=== PATIENT | female | born 1985 | race Caucasian/White ===

== ENCOUNTER → 2020-05-29 10:06 | Outpatient (BNVA) | payer OTHER, SELFPAY | PROVIDERS: PCP Student in an Organized Health Care Education/Training Program; Visit Provider Surgery | DX: K42.9 Umbilical hernia without obstruction or gangrene (principal) | CPT/HCPCS: 99212 ==

== ENCOUNTER 2020-06-07 13:38 | Outpatient (REF) | payer OTHER, SELFPAY ==
--- NOTE | 2020-06-07 13:51 | XR_ITS ---
EXAMINATION: XR KNEE, BILATERAL XR KNEE, RIGHT XR KNEE, LEFT CLINICAL INFORMATION: Pain. COMPARISON: None TECHNIQUE: AP bilateral knees 1 view. Right knee 2 views. Left knee 3 views. FINDINGS: RIGHT KNEE: Normal alignment. Joint spaces are maintained. No fracture or dislocation. No effusion. LEFT KNEE: Normal alignment. Joint spaces are maintained. No fracture or dislocation. No effusion. XR/XR knee RT 2V IMPRESSION: No evidence of significant osseous abnormality.
--- NOTE | 2020-06-07 13:51 | XR_ITS ---
EXAMINATION: XR KNEE, BILATERAL XR KNEE, RIGHT XR KNEE, LEFT CLINICAL INFORMATION: Pain. COMPARISON: None TECHNIQUE: AP bilateral knees 1 view. Right knee 2 views. Left knee 3 views. FINDINGS: RIGHT KNEE: Normal alignment. Joint spaces are maintained. No fracture or dislocation. No effusion. LEFT KNEE: Normal alignment. Joint spaces are maintained. No fracture or dislocation. No effusion. XR/XR knee LT 2V IMPRESSION: No evidence of significant osseous abnormality.
--- NOTE | 2020-06-07 13:51 | XR_ITS ---
EXAMINATION: XR KNEE, BILATERAL XR KNEE, RIGHT XR KNEE, LEFT CLINICAL INFORMATION: Pain. COMPARISON: None TECHNIQUE: AP bilateral knees 1 view. Right knee 2 views. Left knee 3 views. FINDINGS: RIGHT KNEE: Normal alignment. Joint spaces are maintained. No fracture or dislocation. No effusion. LEFT KNEE: Normal alignment. Joint spaces are maintained. No fracture or dislocation. No effusion. XR/XR knee standing BI IMPRESSION: No evidence of significant osseous abnormality.
== END 2020-06-07 13:39 | disposition home or self-care (01) ==
LOC: HO.HOSX 13:38
PROVIDERS: PCP Student in an Organized Health Care Education/Training Program; Referring Provider Student in an Organized Health Care Education/Training Program; Visit Provider Orthopaedic Surgery
DX: M25.562 Pain in left knee (principal); M25.561 Pain in right knee; M22.2X1 Patellofemoral disorders, right knee; M22.2X2 Patellofemoral disorders, left knee
CPT/HCPCS: 73560; 73565; 99202

== ENCOUNTER 2020-06-13 08:13 | Day surgery (SDC) | payer OTHER, SELFPAY ==
[2020-06-07 14:23] VITALS: BMI 28.1
[2020-06-13] VITALS (13 sets, daily range): BP systolic 100–122; BP diastolic 61–81; PULSE 62–76; RESP 16–20; TEMP 36.2–36.7; O2SAT 92–99
--- NOTE | 2020-06-13 08:37 | P.CONAN_ITS ---
[facility] Past Medical History Medical History Atypical chest pain Family history of anesthesia complication Hx of scoliosis Smoker Umbilical hernia Family History Family History Other History of bone cancer Surgical History Surgical History No history of previous surgery Social History Social History Smoking Status: Current some day smoker Packs Per Day: 0 (occasional use of Huka) Cigarettes Per Day: 0.0 Years Smoked: occasional Huka use Use of substances other than those prescribed or required for medical reasons: No Advance Directives Information Provided: No Recently lost weight without trying: No Current occupational status: employed Current occupation: realtor - Right [employer] Meds Allergies Allergy/AdvReac Type Severity Reaction Status Date / Time No Known Allergies Allergy Verified 06/07/20 14:27 Home Medications Medication Instructions Recorded Confirmed Type No Known Home Meds 06/07/20 06/07/20 History Exam Exam Date and Time: June 13, 2020 0837 Height,Weight and Vital Signs: Height 5 ft 3 in Weight 72.121 kg Airway Mallampati Class: II TM Dist: >3cm Neck ROM: Full Assessment and Plan Assessment Anesthesia Assessment: Anesthesia Plan Discussed and Chart Reviewed Final Anesthetic Review NPO: Yes ASA Class: II Final Preanesthetic Review: No Changes in Pt Med Stat, Meds/Allgs Chart Reviewed, Consent Obtained/Reviewed and Anes Risks/Benef Reviewed Patient Risk: Low Procedure Risk: Low Assessment/Block/Sedation in SS: Assess/Block/Sedation-SS Anesthetic Plan Anesthetic Plan: GA Disposition: Standard PACU
--- NOTE | 2020-06-13 09:08 | MHC.SHP ---
Pre-Procedural Eval Section B Chief Complaint: Umbilical Hernia Allergies: Allergies Allergy/AdvReac Type Severity Reaction Status Date / Time No Known Allergies Allergy Verified 06/07/20 14:27 Plan Patient has been examined and remains a candidate for the planned procedure
[2020-06-13 09:17] LABS: UPreg QC Valid YES; Urine Pregnancy NEGATIVE (NEGATIVE)
--- NOTE | 2020-06-13 10:01 | PM.OP ---
Brief Operative Note Date of Service: 06/13/20 Pre-op diagnosis: umbilical hernia Post-op diagnosis: same Procedure: repair of umbilical hernia wiht mesh Implants: mesh Surgeon: Art Gonzalez MD Anesthesia: GLMA Estimated blood loss (mL): 0 Pathology: none sent Condition: stable Disposition: PACU
[2020-06-13] MEDS: Acetaminophen 325 MG TABLET 650 MG PO (10:29)
[2020-06-13] MEDS: ondansetron HCL 4 MG/2 ML VIAL IVPUSH (10:35)
[2020-06-13] MEDS: oxyCODONE HCl Immed Release 5 MG TABLET PO (10:36)
[2020-06-13] MEDS: fentaNYL citrate/PF 100 MCG/2 ML VIAL 50 MCG IVPUSH (10:38)
--- NOTE | 2020-06-13 11:16 | OP_ITS ---
SURGEON: Art Gonzalez MD INDICATIONS: The patient is a 34-year-old female with a reducible mass in the umbilicus consistent with umbilical hernia. In view of tenderness, she wanted to proceed with repair. The patient understood the technique of repair with mesh. She was aware of the risks, benefits, and alternatives. PREOPERATIVE DIAGNOSIS: Umbilical hernia. POSTOPERATIVE DIAGNOSIS: Umbilical hernia. PROCEDURE PERFORMED: Repair of umbilical hernia with Ventralex mesh. ESTIMATED BLOOD LOSS: Blood loss about 5 cc. The patient was extubated without difficulty and transferred to recovery room with stable vital signs. COMPLICATIONS: There were no complications noted. Initial and final counts of sponges and instruments were correct. ANESTHESIA: ASSISTANTS: SPECIMENS: WOOD ENGRAVER: Ramila Mars PA-C. DESCRIPTION OF PROCEDURE: The patient was brought to the operating room, placed supine on the table under general anesthesia via laryngeal mask airway. The periumbilical area was prepped and draped in usual sterile fashion. A surgical time-out was done. The patient received cefazolin 2 g IV preoperatively. A short transverse supraumbilical incision was made in the skin using blade #15, it was carried down to full-thickness subcutaneous fat. We then proceeded to apply Allis clamps on the subcutaneous layer, subdermal layer of the umbilicus and used this retraction to create to obtain a dissection underneath the umbilicus and lifted this as a flap off the rest of the fascia. This allowed us to visualize the umbilical defect which was about 1.5 cm. The edges of the fascial defect were carefully defined. We were able to actually stay above the peritoneal plane and proceeded to do blunt dissection to create space for the mesh underneath the fascia. We used the small size Ventralex mesh, and this was flattened under the fascial defect. The Prolene straps of this mesh were secured with Prolene 2-0 sutures to the fascial edge on both sides. The Prolene straps were trimmed. We then closed the fascial defect with the Maxon 1 [id number] stitch. We irrigated. We proceeded to apply Dexon 3-0 sutures to tack the umbilicus to the fascia to recreate the dimple. The subcutaneous layer was reapposed with Dexon 3-0 interrupted sutures. Skin closure achieved with Dexon 4-0 subcuticular running stitch. The area of the incision was then infiltrated with Marcaine 0.5% for postop analgesia and the procedure was completed. The patient tolerated the procedure well. MD JANUSZ Mayer/ДМИТРИЙ / [id number]
[2020-06-13] MEDS: Ketorolac Tromethamine 15 MG/ML VIAL IVPUSH (11:30)
== END 2020-06-13 12:53 | disposition home or self-care (01) ==
PROVIDERS: PCP Student in an Organized Health Care Education/Training Program; Visit Provider Surgery
PROC: (CPT 49585; principal; 2020-06-13 09:50)
DX: K42.9 Umbilical hernia without obstruction or gangrene (principal); F17.200 Nicotine dependence, unspecified, uncomplicated; Z80.8 Family history of malignant neoplasm of other organs or systems
CPT/HCPCS: 49585; 81025; C1781; J0690; J1100; J1885; J2250; J2405; J3010

== ENCOUNTER → 2020-06-26 14:49 | Outpatient (BNVA) | payer OTHER, SELFPAY | PROVIDERS: PCP Student in an Organized Health Care Education/Training Program; Referring Provider Student in an Organized Health Care Education/Training Program; Visit Provider Surgery | DX: K42.9 Umbilical hernia without obstruction or gangrene (principal) | CPT/HCPCS: 99212 ==

== ENCOUNTER 2021-01-11 09:39 | Outpatient (REF) | payer OTHER, SELFPAY ==
--- NOTE | ~2021-01-11 | US_ITS ---
EXAMINATION: US ABDOMEN COMPLETE CLINICAL INFORMATION: Epigastric pain. COMPARISON: None TECHNIQUE: Real-time imaging of the abdominal viscera. FINDINGS: PANCREAS: Normal. ABDOMINAL AORTA: The proximal, mid, and distal segments are normal in caliber. INFERIOR VENA CAVA: Visualized portions are normal. LIVER: The liver is normal in size. The liver contour is normal. Liver echotexture is increased. No focal hepatic lesion. There is no intrahepatic biliary duct dilatation seen. GALLBLADDER: Normal. The gallbladder is physiologically distended without evidence of stones, sludge, polyps, wall thickening or pericholecystic fluid. COMMON BILE DUCT: Normal in caliber measuring 0.2 cm in diameter. RIGHT KIDNEY: Normal. No hydronephrosis. No renal calculi or focal parenchymal lesions. The kidney measures 9.5 cm in maximum dimension. LEFT KIDNEY: Normal. No hydronephrosis. No renal calculi or focal parenchymal lesions. The kidney measures 11.0 cm in maximum dimension. SPLEEN: The spleen is slightly enlarged. The spleen measures 13.3 cm in maximum dimension. FREE FLUID: None. US/US abdomen complete IMPRESSION: Echogenic liver probably representing fatty infiltration. Mild splenomegaly.
--- NOTE | ~2021-01-11 | US_ITS ---
EXAMINATION: PELVIC ULTRASOUND CLINICAL INFORMATION: Pain COMPARISON: Previous exam most recent December 2017 TECHNIQUE: Transabdominal and transvaginal pelvic ultrasound was performed. Transvaginal exam was performed for better visualization of the uterus and ovaries. FINDINGS: The uterus is anteverted and measures 8.3 x 4.5 x 5.4 cm in dimension. No focal uterine lesion is seen. Endometrial thickness is normal measuring 0.9 cm. There are nabothian cysts in the cervix. The right ovary is slightly enlarged enlarged measuring 3.4 x 2.4 x 3.3 cm, volume 14 mL. There are multiple peripheral small cysts or follicles in the right ovary. There is a larger 1.3 x 1 x 1.5 cm simple cyst or follicle. The left ovary is normal in size and measures 3.5 x 1.9 x 2.7 cm, volume 9 mL. There are multiple small peripheral cysts or follicles. There is no fluid in the pelvis. US/US pelvic and transvaginal IMPRESSION: Polycystic appearance of the ovaries. Otherwise unremarkable exam.
== END 2021-01-11 09:40 | disposition home or self-care (01) ==
LOC: HO.US 09:39
PROVIDERS: PCP Student in an Organized Health Care Education/Training Program; Visit Provider Emergency Medicine
DX: R10.2 Pelvic and perineal pain (principal)
CPT/HCPCS: 76700; 76830; 76856

== ENCOUNTER 2021-05-10 13:12 | Outpatient (REF) | payer OTHER, SELFPAY | END 2021-05-10 13:13 | disposition home or self-care (01) | LOC: CF 13:12 | PROVIDERS: PCP Student in an Organized Health Care Education/Training Program; Visit Provider Physician Assistant | DX: R12 Heartburn (principal); K76.0 Fatty (change of) liver, not elsewhere classified; F41.9 Anxiety disorder, unspecified | CPT/HCPCS: 99202 ==

== ENCOUNTER 2021-05-11 09:08 | Outpatient (REF) | payer OTHER, SELFPAY ==
[2021-05-11 09:29] LABS: MANUAL DIFF FLAG NO
[2021-05-11 09:46] LABS: Basophils Percent Auto 0.6 % (0-2); Eosinophils Absolute Auto 0.1 X10*3/uL (0.0-0.4); Eosinophils Percent Auto 1.6 % (0-4); Hematocrit 41.4 % (37-47); Hemoglobin 13.5 g/dl (12.0-16.0); Imm Gran Abs Auto 0.01 X10*3/uL (0.00-0.03); Imm Gran Pct Auto 0.2 % (0.0-0.4); Lymphocytes Absolute Auto 1.5 X10*3/uL (1.2-4.9); Lymphocytes Percent Auto 30.1 % (20-40); Mean Corpuscular HGB Conc 32.6 g/dl (31.0-35.0); Mean Corpuscular Hemoglobin 26.9 pg (27.0-33.0); Mean Corpuscular Volume 82.6 fL (80-98); Mean Platelet Volume 11.5 fL (9.4-12.3); Monocytes Absolute Auto 0.3 X10*3/uL (0.1-1.2); Monocytes Percent Auto 5.9 % (2-11); Neutrophils Percent Auto 61.6 % (45-73); Platelet Count 214 X10*3/uL (160-400); Red Blood Count 5.01 X10*6/uL (4.20-5.50); Red Cell Distribution Width 13.1 % (11.0-16.0); White Blood Count 4.9 X10*3/uL (4.8-10.8)
[2021-05-11 10:17] LABS: Alanine Aminotransferase 22 U/L (0-31); Albumin Level 4.4 g/dL (3.5-5.0); Alkaline Phosphatase 54 U/L (39-117); Anion Gap 10 (12-20); Aspartate Amino Transferase 18 U/L (5-31); Bilirubin Total 0.7 mg/dL (0.0-1.0); Blood Urea Nitrogen 11 mg/dL (9-16); Calcium 9.9 mg/dL (8.4-10.2); Carbon Dioxide 28 mmol/L (22-29); Chloride 104 mmol/L (96-108); Cholesterol 254 mg/dL; Estimated Glomerular Filt Rate > 60; Glucose Random 89 mg/dL (60-115); HDL Cholesterol 41 mg/dL; LDL Cholesterol Calculated 142 mg/dl; Potassium 4.2 mmol/L (3.3-5.1); Sodium 138 mmol/L (135-145); Total Protein 7.3 g/dL (6.5-8.0); Triglycerides 356 mg/dL
[2021-05-11 10:25] LABS: Estimated Average Glucose 80 mg/dL; Hemoglobin A1c % 4.4 %
[2021-05-11 10:36] LABS: HBS Num1 438.24 mIU/mL (0-7.99); HBsAGNum1 0.14 S/CO (0.00-0.99); Hepatitis B Surface Antigen Negative (Negative); ~HepC Num1 0.11 S/CO (0.00-0.79); ~Hepatitis B Surface Antibody REACTIVE (Nonreactive); ~Hepatitis C Antibody Nonreactive (Nonreactive)
[2021-05-11 10:45] LABS: Ferritin 25 ng/mL (10-122); Thyroid Stimulating Hormone 1.24 uIU/mL (0.32-4.0)
[2021-05-11 11:01] LABS: HBc Num1 0.03 S/CO (0.00-0.79); Hepatitis A Antibody IgM 0.31 Index (0-0.79); Hepatitis B Core Antibody Nonreactive (Nonreactive); ~Hepatitis A Antibody IgM Nonreactive (Nonreactive)
== END 2021-05-11 09:09 | disposition home or self-care (01) ==
LOC: HO.LAB 09:08
PROVIDERS: PCP Student in an Organized Health Care Education/Training Program; Referring Provider Student in an Organized Health Care Education/Training Program; Visit Provider Physician Assistant
DX: R12 Heartburn (principal); K76.0 Fatty (change of) liver, not elsewhere classified; K59.09 Other constipation; R79.89 Other specified abnormal findings of blood chemistry; D64.9 Anemia, unspecified
CPT/HCPCS: 36415; 80053; 80061; 82728; 83036; 84443; 85025; 86704; 86706; 86709; 86803; 87340

== ENCOUNTER 2021-09-24 12:52 | Outpatient (REF) | payer OTHER, SELFPAY ==
--- NOTE | ~2021-09-24 | US_ITS ---
EXAMINATION: US PELVIC AND TRANSVAGINAL CLINICAL INFORMATION: Infertility, obesity. COMPARISON: None TECHNIQUE: Ultrasound of the pelvis is performed using both transabdominal and transvaginal transducers along with Doppler. Transvaginal imaging is performed due to inadequate visualization transabdominally. FINDINGS: UTERUS: The uterus is anteverted and measures 10.7 cm in length, 4.5 cm in AP and 5.5 cm in transverse dimension. The double wall endometrial thickness is 13 mm. The uterus is smooth in contour and has normal myometrial echogenicity. No visible fibroid. There are small nabothian cysts seen in the cervix. ADNEXA: Both ovaries are visualized. There is normal color flow to the adnexa. There is no ovarian torsion. There is no pelvic ascites or fluid collection. Right ovary measures 5.0 x 3.6 x 3.6 cm and volume 26.4 mL. There are small follicular cysts seen. Previously, right ovary measured 3.4 x 2.4 x 3.3 cm and volume 14.1 mL. Left ovary measures 3.7 x 2.2 x 2.6 cm and volume 11.1 mL. There are multiple small follicles visualized. Previously, left ovary measured 3.5 x 1.9 x 2.7 cm and volume 9.0 mL. There is no free fluid in the cul-de-sac. US/US pelvic and transvaginal IMPRESSION: 1. Unremarkable uterus. 2. Mild small nabothian cysts. 3. Small follicles in the ovaries.
== END 2021-09-24 12:53 | disposition home or self-care (01) ==
LOC: HO.US 12:52
PROVIDERS: PCP Student in an Organized Health Care Education/Training Program; Visit Provider Student in an Organized Health Care Education/Training Program
DX: N97.9 Female infertility, unspecified (principal)
CPT/HCPCS: 76830; 76856

== ENCOUNTER → 2021-10-04 13:18 | Outpatient (BNVA) | payer OTHER, SELFPAY | PROVIDERS: PCP Student in an Organized Health Care Education/Training Program; Visit Provider Advanced Practice Midwife | DX: N97.9 Female infertility, unspecified (principal); E28.2 Polycystic ovarian syndrome; N92.6 Irregular menstruation, unspecified | CPT/HCPCS: 81025; 99202 ==

== ENCOUNTER 2021-10-15 23:58 | Emergency (ER) | payer OTHER, SELFPAY ==
--- NOTE | ~2021-10-15 | XR_ITS ---
EXAMINATION: XR CHEST CLINICAL INFORMATION: Chest pain. COMPARISON: None TECHNIQUE: Frontal view of the chest was obtained. FINDINGS: Lungs are clear. No consolidation, pneumothorax, or pleural effusion. Cardiac and mediastinal contours are within normal limits, distorted by the significant thoracic kyphosis. No acute osseous findings. Pulmonary vasculature appears normal. XR/XR chest 1V IMPRESSION: No acute cardiopulmonary findings.
--- NOTE | 2021-10-16 | ECG_ITS ---
Test Reason : CHEST PAIN Blood Pressure : / mmHG Vent. Rate : 062 BPM Atrial Rate : 062 BPM P-R Int : 188 ms QRS Dur : 078 ms QT Int : 398 ms P-R-T Axes : 056 043 047 degrees QTc Int : 403 ms Normal sinus rhythm Normal ECG No previous ECGs available Referred By: Kevin Mixon Electronically Signed By:Gabriel Mansfield
--- NOTE | 2021-10-16 00:01 | ED_ITS ---
HPI - Chest Pain General Chief Complaint: Chest Pain Stated Complaint: CP Time Seen by Provider: 10/16/21 00:00 Source: patient Mode of arrival: ambulatory Limitations: no limitations History of Present Illness HPI narrative: This is a 36-year-old female past medical history significant for PCOS, anxiety, GERD presenting to the emergency department with complaints of substernal chest pain times 30 minutes. Patient tells me it started suddenly when she was sitting down she describes it as a sharp sensation that does not radiate she tells me it is severe in when she had initially she felt slightly lightheaded with it, chest pain is still present however not as severe. She tells me she has never had chest pain like this before. No personal or family history of heart disease. She does report frequent travel however denies shortness of breath. She tells me she was recently on a plane last week for 2 to and have our plane trip. She denies leg swelling, fevers, chills, nausea, vomiting, abdominal pain, leg pain calf pain. Patient is not on anticoagulation. Patient denies anxiety/panic. MD complaint: chest pain Onset (ago): minute(s) (30) Prior episodes: No Onset: during rest Pain location: substernal Pain radiation: none Quality: tightness Exacerbating factors: nothing Related Data Previous Rx's Medication Instructions Recorded ibuprofen 600 mg tablet 600 mg PO Q6H PRN #30 tab 06/13/20 oxycodone-acetaminophen 5 mg-325 1 - 2 tab PO Q4-6H PRN #30 tab 06/13/20 mg tablet (Percocet) methylcellulose (laxative) 500 mg 500 mg PO BID #60 tab 05/10/21 tablet (Citrucel) omeprazole 20 mg capsule,delayed 20 mg PO DAILY #30 cap 05/10/21 release sucralfate 100 mg/mL oral 10 ml PO BID #420 ml 05/10/21 suspension (Carafate) Allergies Allergy/AdvReac Type Severity Reaction Status Date / Time No Known Allergies Allergy Verified 10/04/21 13:25 Review of Systems Review of Systems: Constitutional : No Weight loss, No Fever, No Chills, No Fatigue, No Malaise ENT/Mouth : No sore throat, No Rhinorrhea Eyes: No Eye Pain, No Swelling, No Redness Cardiovascular : + Chest Pain, No SOB, No Dyspnea on Exertion, No Orthopnea, No Edema, No Palpitations Respiratory : No Cough, No Sputum, No Wheezing Gastrointestinal : No Nausea, No Vomiting, No Diarrhea, No Constipation, No abdominal Pain, No Hematochezia, No Melena Genitourinary : No Dysuria, No Urinary Frequency, No Hematuria, Musculoskeletal : No joint pain, No Myalgias, No Joint Swelling Skin : No Skin Lesions, No rash Neuro : No Weakness, No Numbness, No Dizziness, No Headache Psych : No Anxiety/Panic, No Depression All other systems reviewed and are negative Yes all other systems are reviewed and are negative [facility] Past Medical History Attestation statement: The following information was validated with the patient. Source: old records reviewed and nursing notes reviewed Medical History Atypical chest pain Family history of anesthesia complication Hx of scoliosis PCOS (polycystic ovarian syndrome) Umbilical hernia Surgical History No history of previous surgery Family History Family History Maternal Grandmother Diabetes HTN (hypertension) Other History of bone cancer Social History Social History Household Members Other:: Alcohol intake: never Patient Tobacco Use Status: Former Tobacco user Cigarette Packs Per Day: 0 (occasional use of Huka) Cigarettes Per Day: 0.0 Years Smoked: occasional Huka use Advance Directives: No Advance Directives Information Provided: Yes Patient : No Current occupational status: employed Current occupation: realtor - Right Handed Physical Exam Vital Signs: Vital Signs: Last Vital Signs Temp 97.3 F 10/16/21 00:35 Pulse 69 10/16/21 00:35 Resp 12 10/16/21 00:35 BP 106/56 L 10/16/21 00:35 Pulse Ox 96 10/16/21 00:35 BMI result Body Mass Index 26.0 VSS Appearance: Alert.? Oriented X3.? No acute distress.? Head: Normocephalic, atraumatic, no step-offs or deformities Eyes: Pupils equal, round and reactive to light.? ENT: Pharynx normal.? Neck: Normal inspection.? Neck supple.? CVS: Normal heart rate and rhythm.? Pulses normal.? Respiratory: No respiratory distress.? Breath sounds normal.? Abdomen: Soft and nontender.? Skin: Skin warm and dry.? Normal skin color.? Normal skin turgor.? Extremities: No lower extremity edema.? No calf ttp. 5/5 strength to bilateral upper and lower extremities Back: No midline tenderness, no C-spine tenderness, full range of motion, no CVA tenderness bilaterally Neuro: Oriented X 3.? No motor deficit.? No sensory deficit. CN 2-12 intact Course Reevaluation(s) Reevaluation #1: CBC within normal limits. Chemistry with no acute electrolyte abnormalities. Troponin less than 3.5, EKG nonischemic, unlikely ACS. D-dimer negative, bilateral Julia sign negative unlikely DVT/PE. Urine clean. Unlikely UTI. COVID negative. At this time patient will be discharged home with PCP and cardiology follow-up. This is likely noncardiac related chest pain. Time: 01:20 Reevaluation #2: Patient reports that her chest pain has subsided completely upon discharge. Gave her follow-up with Cardiology. Outlined worrisome signs and symptoms. MDM - Chest Pain MDM Narrative Medical decision making narrative: 001 36 yo f pmhx anxiety, NAFLD, PCOS, GERD presents w/ sudden onset stabbing, substernal, non radiating CP X30 minutes PE benign Plan- labs, dimer, trop, ekg, cardiac monitoring Medical Records Data Attestation: I reviewed the patient's medical records. Lab Data Attestation: I reviewed the patient's lab results. Result diagrams: 10/16/21 00:35 10/16/21 00:36 Labs: Lab Results 10/16/21 10/16/21 10/16/21 Range/Units 00:21 00:21 00:35 WBC 5.1 (4.8-10.8) X10*3/uL RBC 4.63 (4.20-5.50) X10*6/uL Hgb 12.3 (12.0-16.0) g/dl Hct 38.1 (37.0-47.0) % MCV 82.3 (80.0-98.0) fL MCH 26.6 L (27.0-33.0) pg MCHC 32.3 (31.0-35.0) g/dl RDW 13.2 (11.0-16.0) % Plt Count 198 (160-400) X10*3/uL MPV 11.1 (9.4-12.3) fL Immature Gran % (Auto) 0.2 (0.0-0.4) % Neut % (Auto) 56.6 (45-73) % Lymph % (Auto) 34.3 (20-40) % [place] % (Auto) 6.2 (2-11) % Eos % (Auto) 2.1 (0-4) % Baso % (Auto) 0.6 (0-2) % Lymph # (Auto) 1.8 (1.2-4.9) X10*3/uL [place] # (Auto) 0.3 (0.1-1.2) X10*3/uL Eos # (Auto) 0.1 (0.0-0.4) X10*3/uL Baso # (Auto) 0.0 (0.0-0.2) X10*3/uL Abs Immat Gran (auto) 0.01 (0.00-0.03) X10*3/uL Absolute Neuts (auto) 2.9 (2.0-8.3) x10*3/uL Absolute Nucleated RBC 0.000 (0.0-0.012) X10*3/uL Nucleated RBC % (auto) 0.0 (0.0-0.2) /100WBC D-Dimer High Sensitivty NG/ML Sodium (135-145) mmol/L Potassium (3.3-5.1) mmol/L Chloride (96-108) mmol/L Carbon Dioxide (22-29) mmol/L Anion Gap (12-20) BUN (9-16) mg/dL Creatinine (0.5-1.4) mg/dL Estim Creat Clear Calc Estimated GFR Random Glucose (60-115) mg/dL Calcium (8.4-10.2) mg/dL Magnesium (1.6-2.6) mg/dL Total Bilirubin (0.0-1.0) mg/dL AST (5-31) U/L ALT (0-31) U/L Alkaline Phosphatase (39-117) U/L Troponin I High Sens (<3.5-17.0) ng/L Total Protein (6.5-8.0) g/dL Albumin (3.5-5.0) g/dL Urine Color STRAW Urine Appearance CLEAR Urine pH 8.0 (5.0-8.0) Ur Specific [place] 1.010 (1.005-1.025) Urine Protein NEG (NEG-TRACE) MG/DL Urine Glucose (UA) NEG (NEG) MG/DL Urine Ketones NEG (NEG) MG/DL Urine Blood TRACE (NEG) Urine Nitrite NEG (NEG) Ur Leukocyte Esterase NEG (NEG) Urine RBC 0 (0) /HPF Urine WBC 1-4 (0-4) /HPF Ur Squamous Epith Cells 3+ /LPF Calcium Phosphate Cryst TRACE /LPF Urine Bacteria 1+ /LPF COVID-19 (THERESE) Negative (Negative) COVID-19 Clin Com See Note 10/16/21 10/16/21 10/16/21 Range/Units 00:35 00:36 00:36 WBC (4.8-10.8) X10*3/uL RBC (4.20-5.50) X10*6/uL Hgb (12.0-16.0) g/dl Hct (37.0-47.0) % MCV (80.0-98.0) fL MCH (27.0-33.0) pg MCHC (31.0-35.0) g/dl RDW (11.0-16.0) % Plt Count (160-400) X10*3/uL MPV (9.4-12.3) fL Immature Gran % (Auto) (0.0-0.4) % Neut % (Auto) (45-73) % Lymph % (Auto) (20-40) % [place] % (Auto) (2-11) % Eos % (Auto) (0-4) % Baso % (Auto) (0-2) % Lymph # (Auto) (1.2-4.9) X10*3/uL [place] # (Auto) (0.1-1.2) X10*3/uL Eos # (Auto) (0.0-0.4) X10*3/uL Baso # (Auto) (0.0-0.2) X10*3/uL Abs Immat Gran (auto) (0.00-0.03) X10*3/uL Absolute Neuts (auto) (2.0-8.3) x10*3/uL Absolute Nucleated RBC (0.0-0.012) X10*3/uL Nucleated RBC % (auto) (0.0-0.2) /100WBC D-Dimer High Sensitivty < 150 NG/ML Sodium 137 (135-145) mmol/L Potassium 3.6 (3.3-5.1) mmol/L Chloride 106 (96-108) mmol/L Carbon Dioxide 22 (22-29) mmol/L Anion Gap 13 (12-20) BUN 15 (9-16) mg/dL Creatinine 0.69 (0.5-1.4) mg/dL Estim Creat Clear Calc 104.4 Estimated GFR > 60 Random Glucose 111 (60-115) mg/dL Calcium 9.6 (8.4-10.2) mg/dL Magnesium 2.1 (1.6-2.6) mg/dL Total Bilirubin 0.6 (0.0-1.0) mg/dL AST 18 (5-31) U/L ALT 19 (0-31) U/L Alkaline Phosphatase 48 (39-117) U/L Troponin I High Sens < 3.5 (<3.5-17.0) ng/L Total Protein 6.9 (6.5-8.0) g/dL Albumin 4.0 (3.5-5.0) g/dL Urine Color Urine Appearance Urine pH (5.0-8.0) Ur Specific [place] (1.005-1.025) Urine Protein (NEG-TRACE) MG/DL Urine Glucose (UA) (NEG) MG/DL Urine Ketones (NEG) MG/DL Urine Blood (NEG) Urine Nitrite (NEG) Ur Leukocyte Esterase (NEG) Urine RBC (0) /HPF Urine WBC (0-4) /HPF Ur Squamous Epith Cells /LPF Calcium Phosphate Cryst /LPF Urine Bacteria /LPF COVID-19 (THERESE) (Negative) COVID-19 Clin Com ECG Data ECG #1: Attestation: I personally reviewed and interpreted this ECG as follows: ECG interpretation date: 10/16/21 ECG interpretation time: 01:59 Prior ECG tracings: not available for review Interpretation: Ventricular rate of 62, LA normal, QRS normal, QT/QTC normal. EKG shows normal sinus rhythm no ST elevations or inversions concerning for ischemia. No previous EKGs to compare with. Critical Care Time Critical Care Time Critical Care Time: No Discharge Plan Discharge Clinical Impression: Chest pain not due to acute coronary syndrome Patient Disposition: Home, Self-Care Instructions: Chest Pain (ED) Additional Instructions: Take your medications as prescribed. Follow-up with your primary care provider this week. Follow-up with Cardiology as soon as possible. Return to the emergency department with new or worsening symptoms. Such as fevers, chills, chest pain, shortness of breath, nausea, vomiting, dizziness, headache, vision changes, lethargy In case of emergency call 911 Your EKG was nonischemic, uric cardiac enzymes were negative. Your lab work was reassuring. Prescriptions: No Action ibuprofen 600 mg tablet 600 mg PO Q6H PRN (Reason: pain) Qty: 30 1RF oxycodone-acetaminophen [Percocet] 5-325 mg tablet 1 - 2 tab PO Q4-6H PRN (Reason: pain) Qty: 30 0RF omeprazole 20 mg capsule,delayed release(DR/EC) 20 mg PO DAILY Qty: 30 5RF sucralfate [Carafate] 100 mg/mL suspension 10 ml PO BID Qty: 420 0RF Citrucel 500 mg tablet 500 mg PO BID Qty: 60 5RF Referrals: Physician,Unknown J [Primary Care Provider] - 2 days Stand Alone Forms: Work/School Release
[2021-10-16 00:05] VITALS: BP 114/67; BP 135/77; PULSE 68; PULSE 70; RESP 16; O2SAT 100; O2SAT 97; BMI 26.0
[2021-10-16 00:24] VITALS: PULSE 68
[2021-10-16 00:29] LABS: Appearance Urine CLEAR; Color Urine STRAW; Glucose Urine UA NEG (NEG); Leukocyte Esterase Urine NEG (NEG); Nitrite Urine NEG (NEG); UACC Culture Trigger NO; Urine Blood TRACE (NEG); Urine Ketones NEG (NEG); Urine Protein NEG (NEG-TRACE)
[2021-10-16 00:34] LABS: Bacteria Urine 1+ /LPF; Calcium Phosphate Crystals Ur TRACE /LPF; RBC Urine 0 /HPF (0); Squamous Epithelial Cell Urine 3+ /LPF
[2021-10-16 00:35] VITALS: BP 106/56; PULSE 69; RESP 12; TEMP 36.3; O2SAT 96
[2021-10-16 00:42] LABS: Basophils Percent Auto 0.6 % (0-2); Eosinophils Absolute Auto 0.1 X10*3/uL (0.0-0.4); Eosinophils Percent Auto 2.1 % (0-4); Hematocrit 38.1 % (37.0-47.0); Hemoglobin 12.3 g/dl (12.0-16.0); Imm Gran Abs Auto 0.01 X10*3/uL (0.00-0.03); Imm Gran Pct Auto 0.2 % (0.0-0.4); Lymphocytes Absolute Auto 1.8 X10*3/uL (1.2-4.9); Lymphocytes Percent Auto 34.3 % (20-40); MANUAL DIFF FLAG NO; Mean Corpuscular HGB Conc 32.3 g/dl (31.0-35.0); Mean Corpuscular Hemoglobin 26.6 pg (27.0-33.0); Mean Corpuscular Volume 82.3 fL (80.0-98.0); Mean Platelet Volume 11.1 fL (9.4-12.3); Monocytes Absolute Auto 0.3 X10*3/uL (0.1-1.2); Monocytes Percent Auto 6.2 % (2-11); Neutrophils Absolute Auto 2.9 x10*3/uL (2.0-8.3); Neutrophils Percent Auto 56.6 % (45-73); Platelet Count 198 X10*3/uL (160-400); Red Blood Count 4.63 X10*6/uL (4.20-5.50); Red Cell Distribution Width 13.2 % (11.0-16.0); White Blood Count 5.1 X10*3/uL (4.8-10.8)
[2021-10-16 00:51] LABS: D Dimer High Sensitivity < 150 NG/ML
[2021-10-16 01:12] LABS: Alanine Aminotransferase 19 U/L (0-31); Alkaline Phosphatase 48 U/L (39-117); Anion Gap 13 (12-20); Aspartate Amino Transferase 18 U/L (5-31); Bilirubin Total 0.6 mg/dL (0.0-1.0); Blood Urea Nitrogen 15 mg/dL (9-16); Calcium 9.6 mg/dL (8.4-10.2); Carbon Dioxide 22 mmol/L (22-29); Chloride 106 mmol/L (96-108); Creatinine Clr Calc Pharmacy 104.4; Estimated Glomerular Filt Rate > 60; Glucose Random 111 mg/dL (60-115); Magnesium 2.1 mg/dL (1.6-2.6); Potassium 3.6 mmol/L (3.3-5.1); Sodium 137 mmol/L (135-145); Total Protein 6.9 g/dL (6.5-8.0)
[2021-10-16 01:13] LABS: COVID-19 Test Negative (Negative)
[2021-10-16 01:16] LABS: Troponin-I High Sensitivity < 3.5 ng/L (<3.5-17.0)
[2021-10-16 02:00] VITALS: BP 108/61; PULSE 68; RESP 16; TEMP 36.4; O2SAT 99
== END 2021-10-16 02:25 | disposition home or self-care (01) ==
PROVIDERS: Physician Assistant; Emergency Provider Student in an Organized Health Care Education/Training Program
DX: R07.89 Other chest pain (principal); Z20.822 Contact with and (suspected) exposure to COVID-19; F17.200 Nicotine dependence, unspecified, uncomplicated
CPT/HCPCS: 36415; 71045; 80053; 81001; 83735; 84484; 85025; 85379; 87635; 93005; 99284

== ENCOUNTER → 2021-10-17 12:06 | Outpatient (BNVA) | payer OTHER, SELFPAY | PROVIDERS: Visit Provider Physician Assistant | DX: K76.0 Fatty (change of) liver, not elsewhere classified (principal); R14.0 Abdominal distension (gaseous) | CPT/HCPCS: 99212 ==

== ENCOUNTER 2021-10-29 14:57 | Outpatient (REF) | payer OTHER, SELFPAY ==
[2021-10-29 16:05] LABS: Cholesterol 261 mg/dL; HDL Cholesterol 45 mg/dL; LDL Cholesterol Calculated 184 mg/dl; Triglycerides 160 mg/dL
[2021-11-01 21:21] LABS: Transglutaminase IgA <1.0 U/mL
[2021-11-03 15:12] LABS: Endomysial IgA Antibody Negative (Negative)
== END 2021-10-29 14:58 | disposition home or self-care (01) ==
LOC: HO.LAB 14:57
PROVIDERS: PCP Student in an Organized Health Care Education/Training Program; Visit Provider Physician Assistant
DX: R14.0 Abdominal distension (gaseous) (principal); K76.0 Fatty (change of) liver, not elsewhere classified; K59.09 Other constipation; R19.7 Diarrhea, unspecified
CPT/HCPCS: 36415; 80061; 84443; 86231; 86364

== ENCOUNTER 2021-11-29 09:46 | Outpatient (REF) | payer OTHER, SELFPAY ==
[2021-11-29 11:03] LABS: Alanine Aminotransferase 14 U/L (0-31); Albumin Level 4.3 g/dL (3.5-5.0); Alkaline Phosphatase 50 U/L (39-117); Anion Gap 12 (12-20); Aspartate Amino Transferase 15 U/L (5-31); Bilirubin Total 0.5 mg/dL (0.0-1.0); Blood Urea Nitrogen 12 mg/dL (9-16); Calcium 9.8 mg/dL (8.4-10.2); Carbon Dioxide 26 mmol/L (22-29); Chloride 104 mmol/L (96-108); Cholesterol 240 mg/dL; Estimated Glomerular Filt Rate > 60; Glucose Random 88 mg/dL (60-115); HDL Cholesterol 43 mg/dL; LDL Cholesterol Calculated 121 mg/dl; Potassium 4.1 mmol/L (3.3-5.1); Sodium 138 mmol/L (135-145); Total Protein 7.3 g/dL (6.5-8.0); Triglycerides 383 mg/dL
== END 2021-11-29 09:47 | disposition home or self-care (01) ==
LOC: HO.LAB 09:46
PROVIDERS: PCP Student in an Organized Health Care Education/Training Program; Visit Provider Student in an Organized Health Care Education/Training Program
DX: R07.9 Chest pain, unspecified (principal); K75.81 Nonalcoholic steatohepatitis (NASH)
CPT/HCPCS: 36415; 80053; 80061

== ENCOUNTER → 2021-12-19 11:15 | Outpatient (BNVA) | payer SELFPAY | PROVIDERS: PCP Student in an Organized Health Care Education/Training Program; Visit Provider Internal Medicine | DX: R07.2 Precordial pain (principal) ==

== ENCOUNTER 2022-01-01 10:36 | Outpatient (REF) | payer OTHER, SELFPAY ==
--- NOTE | ~2022-01-01 | US_ITS ---
EXAMINATION: US COMPLETE ABDOMEN WITH LIVER ELASTOGRAPHY CLINICAL INFORMATION: Fatty liver COMPARISON: Previous exam December 2020 TECHNIQUE: Real-time imaging of the abdominal viscera. Noninvasive ultrasound liver fibrosis assessment is performed using Lea ElastPQ point quantification shear wave elastography (2D-SWE) with a C5-2 MHz transducer. Multiple elastography samples are obtained. FINDINGS: PANCREAS: Normal. ABDOMINAL AORTA: The proximal, middle, and distal aortic segments are normal in caliber. INFERIOR VENA CAVA: Visualized portions are normal. LIVER: Liver echotexture is increased. The liver demonstrates normal size, contour and echogenicity. No focal lesion or intrahepatic biliary duct dilatation. The right lobe measures 16 cm in length. The left lobe measures 10.6 cm in length. Portal flow is normal Shear wave liver elastography median stiffness is 1.5 m/s (reference: normal median stiffness is 1.3 m/s or less). IQR/median stiffness to assess sampling precision is 0.06 (reference: good quality data set is IQR/median stiffness of 0.15 or less). GALLBLADDER: There is adenomyomatosis of the gallbladder wall with ring down artifact. There is a small 2 x 3 mm gallbladder wall polyp. No gallstones are seen. COMMON BILE DUCT: Normal in caliber measuring 0.1 cm in diameter. RIGHT KIDNEY: Normal. No hydronephrosis. No renal calculi or focal parenchymal lesions. The kidney measures 11.6 cm in maximum dimension. LEFT KIDNEY: Normal. No hydronephrosis. No renal calculi or focal parenchymal lesions. The kidney measures 11.4 cm in maximum dimension. SPLEEN: Slightly enlarged. The spleen measures 13.6 cm in maximum dimension. This is similar to previous exam. FREE FLUID: None. US/US abdomen comp w elastography IMPRESSION: 1. Impression: Echogenic liver probably representing fatty infiltration. Adenomyomatosis of the gallbladder wall. Slightly enlarged spleen. 2. Liver elastography: Adequate liver sampling. In the absence of other known clinical signs, rules out compensated advanced chronic liver disease. REFERENCE: Society of Radiologists in Ultrasound Liver Stiffness Thresholds (2020): LIVER STIFFNESS THRESHOLDS: *Liver Stiffness equal or less than 1.3 m/s: High probability of being normal. *Liver Stiffness less than 1.7 m/s: *Liver Stiffness 1.7-2.1 m/s: Suggestive of compensated advanced chronic liver disease but need further test for confirmation. *Liver Stiffness over 2.1 m/s: Rules in compensated advanced chronic liver disease. *Liver Stiffness over 2.4 m/s: Suggestive of clinically significant portal hypertension. QUALITY OF DATA SET: *IQR/Median value equal or less than 0.15 implies a quality data set. *IQR/Median value over 0.15 implies a poor quality data set. SIGNIFICANT CHANGE FROM PRIOR EXAM: Significant change if liver stiffness measurement is 10% or greater from prior exam. OTHER CONSIDERATIONS: The stage of liver fibrosis may be overestimated in the setting of acute hepatitis, liver inflammation, elevated liver function tests, hepatic vascular congestion, obstructive cholestasis, non-fasting state, and infiltrative diseases such as amyloidosis and lymphoma. In some patients with NAFLD, the liver stiffness thresholds for compensated advanced chronic liver disease may be lower. In causes other than viral hepatitis and NAFLD, liver stiffness thresholds are not well established.
== END 2022-01-01 10:37 | disposition home or self-care (01) ==
LOC: HO.US 10:36
PROVIDERS: Visit Provider Physician Assistant
DX: K76.0 Fatty (change of) liver, not elsewhere classified (principal)
CPT/HCPCS: 76705; 76981

== ENCOUNTER 2024-04-01 11:02 | Outpatient (REF) | payer OTHER, SELFPAY ==
[2024-04-01 14:40] LABS: MANUAL DIFF FLAG NO
[2024-04-01 14:47] LABS: Basophils Absolute Auto 0.1 X10*3/uL (0.0-0.2); Basophils Percent Auto 0.8 % (0-2); Eosinophils Absolute Auto 0.2 X10*3/uL (0.0-0.4); Eosinophils Percent Auto 2.5 % (0-4); Hematocrit 42.7 % (37.0-47.0); Hemoglobin 14.6 g/dl (12.0-16.0); Imm Gran Abs Auto 0.01 X10*3/uL (0.00-0.03); Imm Gran Pct Auto 0.2 % (0.0-0.4); Lymphocytes Absolute Auto 2.1 X10*3/uL (1.2-4.9); Lymphocytes Percent Auto 35.3 % (20-40); Mean Corpuscular HGB Conc 34.2 g/dl (31.0-35.0); Mean Corpuscular Hemoglobin 29.1 pg (27.0-33.0); Mean Corpuscular Volume 85.2 fL (80.0-98.0); Mean Platelet Volume 11.4 fL (9.4-12.3); Monocytes Absolute Auto 0.4 X10*3/uL (0.1-1.2); Monocytes Percent Auto 5.9 % (2-11); Neutrophils Absolute Auto 3.3 x10*3/uL (2.0-8.3); Neutrophils Percent Auto 55.3 % (45-73); Platelet Count 241 X10*3/uL (160-400); Red Blood Count 5.01 X10*6/uL (4.20-5.50); Red Cell Distribution Width 13.4 % (11.0-16.0)
[2024-04-01 15:17] LABS: Vitamin D 25-OH Total 36.8 ng/mL (>30)
[2024-04-01 15:35] LABS: Folate 13.7 ng/mL (> or = 4.0); Vitamin B12 375 pg/mL (200-900)
== END 2024-04-01 11:03 | disposition home or self-care (01) ==
LOC: HO.CHCLDS 11:02
PROVIDERS: Visit Provider Student in an Organized Health Care Education/Training Program
DX: R53.83 Other fatigue (principal); E55.9 Vitamin D deficiency, unspecified
CPT/HCPCS: 36415; 82306; 82607; 82746; 85025

== ENCOUNTER 2025-06-08 16:25 | Outpatient (REF) | payer SELFPAY ==
[2025-06-08 18:03] LABS: MANUAL DIFF FLAG NO
[2025-06-08 18:48] LABS: Albumin Level 4.8 g/dL (3.5-5.0); Alkaline Phosphatase 57 U/L (39-117); Anion Gap 11 (12-20); Aspartate Amino Transferase 32 U/L (5-31); Blood Urea Nitrogen 13 mg/dL (9-16); Calcium 9.5 mg/dL (8.4-10.2); Carbon Dioxide 27 mmol/L (22-29); Chloride 104 mmol/L (96-108); Estimated Glomerular Filt Rate > 60; Potassium 3.9 mmol/L (3.3-5.1); Sodium 138 mmol/L (135-145); Total Protein 7.8 g/dL (6.5-8.0)
--- OUTSIDE RECORDS SUMMARY | 2025-06-08 19:04 | XMS_ITS | Encounter Summary ---
Author Organization [employer] Address [address] [facility] [address] [place] [address] Care Team Providers Care Pr Internship Name Role Phone Sophia Nick MD Primary Care Provider [phone] Ludwig Guy CNP Primary Care Provider [phone] Encounter Details Date Type Department Care Team (Latest Contact Info) Description 11/28/2020 Abstract [facility] CONVERSIONS Dental, Provider, DDS Social History Tobacco Use Types Packs/Day Years Used Date Smoking Tobacco: Never Assessed Comments Unknown Sex and Gender Information Value Date Recorded Sex Assigned at Female 05/27/2022 10:21 AM EDT Legal Sex Female 10:21 AM EDT Gender Identity Female 05/27/2022 10:21 AM EDT Sexual Orientation Straight 05/27/2022 10 :21 AM EDT documented as of this encounter Plan of Treatment Upcoming Encounters Date Type Department Care Team (Late st Contact Info) Description 06/28/2025 1:30 PM EST Office Visit [facility] MED & PEDS [address] [place], [place] [phone] Ludwig Guy CNP [address] [place] [address] documented as of this encounter Visit Diagnoses Not on filedocumented in this encounter Care Teams Pr Internship Relationship Specialty Start Date End Date Sophia Nick MD [address] [place] [id number] PCP - General Family Medicine 08/03/13 03/01/25 Ludwig Guy CNP [address] [place] [address] PCP - General Family Medicine 03/02/25 documented as of this encounter
--- OUTSIDE RECORDS SUMMARY | 2025-06-08 19:04 | XMS_ITS | Encounter Summary ---
Author Organization [employer] Address [address] [place] [address] Care Team Providers Care Fiberglass Boat Builder Name Role Phone Ludwig Guy CNP Primary Care Provider [phone] Reason for Visit * Reason Onset Date Comments DX PA 04/19/2025 Encounter Details Date Type Department Care Team ([facility] st Contact Info) Description 04/19/2025 Telephone [facility] MEDICINE [address] [place] [address] Ludwig Guy CNP [address] [place] [address] DX PA Social History Tobacco Use Types Packs/Day Years Used Date Smoking Tobacco: Former Cigarettes Passive Smoke Exposure: Never Smokeless Tobacco: Never Alcohol Use Standard Drinks/Week Comments Defer 0 (1 standard drink = 0.6 oz pur e alcohol) Housing Stability Answer Date Recorded What is your housing situation today? I have wendy barlow 12/10/[address] you li ve. Do you have problems with any of the following? None of the above 12/10/2023 Food Insecurity Answer Date Recorded Within the past 12 months, y ou worried that your food would run out before you got money to buy more: Never True 12/10/2023 Within the past 12 months,th e food you bought just didn't last and you didn't have enough money to get more: Never True Transportation Answer Date Recorded In the past 12 months, has l ack of transportation kept you from medical appts, meetings, work or from getting things needed for daily living? No 12/10/2023 Utilities Answer Date Recorded In the past 12 months, has t he electric, gas, oil or water company threatened to shut off services in your home? No 12/10/2023 Comments Unknown Sex and Gender Information Value Date Recorded Sex Assigned at Female 05/27/2022 10:21 AM EDT Legal Sex Female 10:21 AM EDT Gender Identity Female 05/27/2022 10:21 AM EDT Sexual Orientation Straight 05/27/2022 10 :21 AM EDT documented as of this encounter Miscellaneous Notes * Telephone Encounter - Bob Farley - 04/20/2025 4:39 PM EDT Patient called requesting a CT Head with and without contrast. Supervisor Statement Clerks informed caller that the provider ordered a CT Head without contrast per clinical recommendation. Supervisor Statement Clerks also explained that dx PA specialist has encountered difficultiy obtaining PA through [employer]. Multiple messages and attempts have been made to reach the insurance company without success. Patient was advised to contact [employer] directly to inquire about the status * Telephone Encounter - David Motta - 04/19/2025 10:39 AM EDT Tc from pt requesting the referall for CT scan to be with Contrast and not with out contrast. Contact pt was [phone] documented in this encounter Plan of Treatment Upcoming Encounters Date Type Department Care Team (Late st Contact Info) Description 06/28/2025 1:30 PM EST Office Visit [facility] MED & PEDS [address] [place] [address] Ludwig Guy CNP [address] [place] [address] documented as of this encounter Visit Diagnoses Not on filedocumented in this encounter Care Teams Fiberglass Boat Builder Relationship Specialty Start Date End Date Ludwig Guy CNP PCP - General Family Medicine 03/02/25 documented as of this encounter
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
--- OUTSIDE RECORDS SUMMARY | 2025-06-08 19:04 | XMS_ITS | Encounter Summary ---
Author Organization [employer] Address [address] [facility] [address]t [place] [address] Care Team Providers Care Dairy Inspector Name Role Phone Sophia Nick MD Primary Care Provider [phone] Ludwig Guy CNP Primary Care Provider [phone] Encounter Details Date Type Department Care Team (Latest Contact Info) Description 09/03/2019 Abstract [facility] CONVERSIONS Dental, Provider, DDS Social History Tobacco [...] 1:30 PM EST Office Visit [facility] CHC MED & PEDS [address] [place], [place] [phone] Ludwig Guy CNP [address] [place] [address] documented as of this encounter Visit Diagnoses Not on filedocumented in this encounter Care Teams Dairy Inspector Relationship Specialty Start Date End Date Sophia Nick MD [address] [place] [address] PCP - General Family Medicine 08/03/13 03/01/25 Ludwig Guy CNP [address] [place] [address] PCP - General Family Medicine 03/02/25 documented as of this encounter
--- OUTSIDE RECORDS SUMMARY | 2025-06-08 19:04 | XMS_ITS | Encounter Summary ---
Author Organization [employer] Address [address] [place] [address] Care Team Providers Care Manager Printing Name Role Phone Sophia Nick MD Primary Care Provider Ludwig Guy CNP Primary Care Provider [phone] Encounter Details Date Type Department Care Team ([facility] Contact Info) Description 09/26/2023 Telephone C [facility] ADULT DENTAL [address] [place] [address] Neeraj Hernandez, DDS [address] [place] [address] Social History Tobacco Use Types Packs/Day Years Used Date Smoking Tobacco: Former Cigarettes Passive Smoke Exposure: Never Smokeless Tobacco: Never Alcohol Use Standard Drinks/Week Comments Defer 0 (1 standard drink = 0.6 oz pur e alcohol) Comments Unknown Sex and Gender Information Value Date Recorded Sex Assigned at Female 05/27/2022 10:21 AM EDT Legal Sex Female 10:21 AM EDT Gender Identity Female 05/27/2022 10:21 AM EDT Sexual Orientation Straight 05/27/2022 10 :21 AM EDT documented as of this encounter Miscellaneous Notes * Telephone Encounter - Angélica Billingsley - 09/26/2023 1:12 PM EST Patient was seen yesterday she says the pain worst meds are not working can we send her something alittle stronger documented in this encounter Plan of Treatment Upcoming Encounters Date Type Department Care Team (Late Contact Info) Description 06/28/2025 1:30 PM EST Office Visit [facility] MED & PEDS [address] [place] [address] Ludwig Guy CNP [address] [place] [address] documented as of this encounter Visit Diagnoses Not on filedocumented in this encounter Care Teams Manager Printing Relationship Specialty Start Date End Date Sophia Nick MD [address] [place] [id number] PCP - General Family Medicine 08/03/13 03/01/25 Ludwig Guy CNP [address] [place] [id number] PCP - General Family Medicine 03/02/25 documented as of this encounter
--- OUTSIDE RECORDS SUMMARY | 2025-06-08 19:04 | XMS_ITS | Encounter Summary ---
Author Organization [employer] Address [address] [facility] [place] [address] Care Team Providers Care Entertainment Lawyer Name Role Phone Ludwig Guy CNP Primary Care Provider [phone] Reason for Visit * Reason Onset Date Comments Call Back Request 04/18/2025 Encounter Details Date Type Department Care Team ([facility] Contact Info) Description 04/18/2025 Telephone [facility] [address] [place] [address] Ludwig Guy CNP [address] [place], [place] [phone] Call Back Request Social History Tobacco Use Types Packs/Day Years [...] encounter Miscellaneous Notes * Telephone Encounter - Kin Noble - 04/18/2025 11:44 AM EDT Tc from pt requesting a call back to discuss CT referral , she states she called [facility] and they have not received a referral Contact pt at [phone] documented in this encounter Plan of Treatment Upcoming Encounters Date Type Department Care Team (Late st Contact Info) Description 06/28/2025 1:30 PM EST Office Visit [facility] MED & PEDS [address] [place] [address] Ludwig Guy CNP [address] [place], [place] [phone] documented as of this encounter Visit Diagnoses Not on filedocumented in this encounter Care Teams Entertainment Lawyer Relationship Specialty Start Date End Date Ludwig Guy CNP PCP - General Family Medicine 03/02/25 documented as of this encounter
--- OUTSIDE RECORDS SUMMARY | 2025-06-08 19:04 | XMS_ITS | Encounter Summary ---
Author Organization [employer] Address [address] [place] [address] Care Team Providers Care Sole Rounder Name Role Phone oSphia Nick MD Primary Care Provider [phone] Ludwig Guy CNP Primary Care Provider [phone] Encounter Details Date Type Department Care Team ([facility] st Contact Info) Description 11/04/2024 Orders Only [facility] [address] [place], [place] [id number] Provider, MD Sneha Social History Tobacco Use Types Packs/Day Years Used Date Smoking Tobacco: Former Cigarettes Passive Smoke Exposure: Never Smokeless Tobacco: Never Alcohol Use Standard Drinks/Week Comments Defer 0 (1 standard drink = 0.6 oz pur e alcohol) Housing Stability Answer Date Recorded What is your housing situation today? I have wendyhermann barlow 12/10/[address] you [...] 06/28/2025 1:30 PM EST Office Visit [facility] [address], [place] [id number] Ludwig Guy CNP [address] [place] [address] documented as of this encounter Procedures Procedure Name Priority Date/Time Associated Diagnosis Comments HM PAP/HPV Routine 05/15/2023 12:41 PM EDT documented in this encounter Results * HM PAP/HPV (05/15/2023 12:41 PM EDT) Historical Provider HEALTH MAINTENANCE Final Result documented in this encounter Visit Diagnoses Not on filedocumented in this encounter Care Teams Sole Rounder Relationship Specialty Start Date End Date Sophia Nick MD [address] [place] [address] PCP - General Family Medicine 08/03/13 03/01/25 Ludwig Guy CNP [address] [place] [address] PCP - General Family Medicine 03/02/25 documented as of this encounter
--- OUTSIDE RECORDS SUMMARY | 2025-06-08 19:04 | XMS_ITS | Clinical Summary ---
Author Organization [facility] Address [address] [place] [address] Care Team Providers Care Sort Supervisor Name Role Phone Unavailable Primary Care Provider Unavailabl e Social History Tobacco Use Types Packs/Day Years Used Date Smoking Tobacco: Never Assessed Comments Unknown Sex and Gender Information Value Date Recorded Sex Assigned at Not on file Legal Sex Female 9:22 AM EST Gender Identity Not on file Sexual Orientation Not on file Plan of Treatment Health Maintenance Due Date Last Done Comments DTaP,Tdap,and Td Vaccines (1 - Tdap) 2005 Hepatitis B Vaccines (1 of 3 - 19+ 3-dose series) 2005 Cervical Cancer Screening: P ap Smear 2007 HPV Vaccines (1 - 3-dose SCD M series) 2013 Depression Screening 2024 COVID-19 Vaccine ( - 2024-2 6 season) 2025 Influenza Vaccine (#1) 2025 RSV Immunization Adult Patie nts (1 - 1-dose 75+ series) 2061 HIB Vaccines Aged Out No longer eligi ble based on patient's age to complete this topic Hepatitis A Vaccines Aged Out No long er eligible based on patient's age to complete this topic IPV Vaccines Aged Out No longer eligi ble based on patient's age to complete this topic MMR Vaccines Aged Out No longer eligi ble based on patient's age to complete this topic Meningococcal ACWY Vaccine Aged Out N o longer eligible based on patient's age to complete this topic Meningococcal B Vaccine Aged Out No l onger eligible based on patient's age to complete this topic Pneumococcal Vaccine: Pediat rics (0 to 5 Years) and At-Risk Patients (6 to 49 Years) Aged Out No longer eligible b ased on patient's age to complete this topic RSV Immunization Patients Un quinten 20 months Aged Out No longer eligible b ased on patient's age to complete this topic Varicella Vaccines Aged Out No longer eligible based on patient's age to complete this topic
[2025-06-08 19:10] LABS: Hematocrit 41.9 % (37.0-47.0); Hemoglobin 13.9 g/dl (12.0-16.0); Imm Gran Abs Auto 0.01 X10*3/uL (0.00-0.03); Imm Gran Pct Auto 0.2 % (0.0-0.4); Lymphocytes Absolute Auto 2.0 X10*3/uL (1.2-4.9); Mean Corpuscular HGB Conc 33.2 g/dl (31.0-35.0); Mean Corpuscular Hemoglobin 27.5 pg (27.0-33.0); Mean Corpuscular Volume 83.0 fL (80.0-98.0); NRBC Abs Auto 0.000 X10*3/uL (0.0-0.012); NRBC Pct Auto 0.0 /100WBC (0.0-0.2); Platelet Count 210 X10*3/uL (160-400); Red Blood Count 5.05 X10*6/uL (4.20-5.50); White Blood Count 6.2 X10*3/uL (4.8-10.8)
[2025-06-09 08:19] LABS: Alanine Aminotransferase 32 U/L (0-31)
[2025-06-09 20:19] LABS: Immunoglobulin A 169 mg/dL (47-310)
== END 2025-06-08 16:26 | disposition home or self-care (01) ==
LOC: HO.CHCLDS 16:25
DX: Z01.84 Encounter for antibody response examination (principal); R14.0 Abdominal distension (gaseous)
CPT/HCPCS: 36415; 80053; 82784; 85025; 86364